=== PATIENT | male | born 1985 | race Caucasian/White ===

== ENCOUNTER 2025-04-11 18:52 | Emergency (ER) | payer OTHER, SELFPAY ==
[2025-04-11 18:53] VITALS: BP 188/108
[2025-04-11 19:44] LABS: ALT (SGPT) 39 U/L (0-50); AST (SGOT) 29 U/L (17-59); Albumin 5.1 g/dl (3.5-5.0); Alkaline Phosphatase 75 U/L (38-126); Blood Urea Nitrogen 9 mg/dl (9-20); Calcium 9.4 mg/dl (8.4-10.2); Carbon Dioxide 30 mmol/L (22-30); Chloride 103 mmol/L (98-107); Glucose 101 mg/dl (70-99); Potassium 4.3 mmol/L (3.5-5.1); Sodium 139 mmol/L (135-145); Total Protein 8.0 g/dl (6.3-8.2); eGFR > 60.00
[2025-04-11 19:45] LABS: Hematocrit 49.5 % (39.0-52.0); Hemoglobin 16.9 g/dL (13.0-18.0); Mean Corp Hgb Conc. 34.1 g/dL (33.0-37.0); Mean Corpuscular Volume 82.0 fL (80.0-94.0); Nucleated Red Blood Cells % 0 % (-); Platelet Count 181 10^3/uL (130-400); Red Cell Dist. Width 12.9 % (11.5-14.5)
--- NOTE | 2025-04-11 19:59 | ED.GENMED ---
History of Present Illness
<Jasmin Hagan MD, Resident - Last Filed: 04/11/25 21:24>
General
Chief Complaint: Change in Mental Status
Source: patient and family
Time Seen by Provider: 04/11/25 19:59
Nursing documentation reviewed up to this point in time: agreed with
History of Present Illness
History of Present Illness:
40-year-old male with past medical history of Asperger's, anxiety, hypothyroidism comes to the ED due to recent weakness, headaches, and more fatigue. He has been more lightheaded and has difficulty getting up for the past week or so. Does not
report any changes in medications but he has had some high blood pressure readings at home, ranging to around 189/103. As per his family, he was told to get a colonoscopy last year was unable to do any prep for it. His family does describe that he
has been snoring a lot and has been getting up in the night. Does not have any chest pain, shortness of breath, difficulty breathing, urinary symptoms. He does not currently have a headache nor any heart palpatations.
Past History
<Jasmin Hagan MD, Resident - Last Filed: 04/11/25 21:24>
Past History
ED Past Medical History: Hypothyroidism, Other (asperger's) and Other (atrial septal defect)
Social History
Tobacco: Non-smoker
Alcohol: None
Drug: None
Personal: Single
Living: with family
Employment: Employed
Family History
Family History: CAD
Review of Systems
<Jasmin Hagan MD, Resident - Last Filed: 04/11/25 21:24>
Review of Systems
Allergies reviewed?: Yes
Unable to obtain full review of systems at this time due to: other (Asperger's)
Other source history: family
Constitutional: Reports fatigue and sleep disturbance; Denies fever or chills
EENT: Reports no symptoms
Respiratory: Reports no symptoms
Cardiac: Reports no symptoms
ABD/GI: Reports no symptoms
: Reports no symptoms
Musculoskeletal: Reports no symptoms
Skin: Reports no symptoms
Neurological: Reports dizzy, headache and weakness
Endocrine: Reports no symptoms
Hematologic/Lymphatic: Reports no symptoms
Psychiatric: Reports no symptoms
Phy Exam
<Jasmin Hagan MD, Resident - Last Filed: 04/11/25 21:24>
General Physical Exam
General Presentation: no apparent distress
General Skin: warm and dry
General Habitus: obese
General Mental: alert and other
General Hydration: appears well hydrated
General Chronic Disability: other (Asperger's)
Cardiovascular Exam
Cardiovascular Exam: regular rate/rhythm and no edema
Pulmonary Exam
Pulmonary Exam: lungs clear, no respiratory distress, no crackles and no wheezing
Gastrointestinal Exam
Gastrointestinal Exam: normal bowel sounds, non tender, soft and distended
Neurological Exam
Neurological Exam: alert and oriented x3
Psychiatric Exam
Psychiatric Exam: normal mood/affect
Course
<Jasmin Hagan MD, Resident - Last Filed: 04/11/25 21:24>
Orders/Labs/Results
Orders:
Orders
04/11/25 19:03
ECG [Electrocardiogram (*1)] Urgent
Reason for Study: Hypertension, Benign
CT Head W/o Iv Contrast Urgent
Comment:
Reason For Exam: CHANGE IN MENTAL STATUS
EKG- Treatment ONCE
04/11/25 19:20
Complete Blood Count/With Diff Urgent
Comprehensive Metabolic Panel Urgent
TSH Urgent
Comment: ADD ON
04/11/25 20:37
Add On- LAB Urgent
Tests Added?: TSH
Amlodipine [Norvasc] 5 mg PO NOW STA
Abnormal Lab Results
04/11/25
19:20
Absolute Lymphs (auto) 0.9 L 10^3/uL
(1.2-3.4)
Neutrophils % 80.5 H %
(42.2-75.2)
Lymphocytes % 11.7 L %
(20.5-51.1)
Glucose 101 H mg/dl
(70-99)
Total Bilirubin 1.4 H mg/dl
(0.2-1.3)
Albumin 5.1 H g/dl
(3.5-5.0)
04/11/25 19:20
04/11/25 19:20
Vital Signs
Initial and Last Documented VS:
Initial Vital Signs
Pulse Resp BP Pulse Ox
65 18 188/108 98
04/11/25 18:53 04/11/25 18:53 04/11/25 18:53 04/11/25 18:53
Last Documented Vital Signs
Pulse Resp BP Pulse Ox
65 18 167/98 95
04/11/25 21:35 04/11/25 21:35 04/11/25 21:35 04/11/25 21:35
<Kevin Brock, DO - Last Filed: 04/11/25 22:57>
Orders/Labs/Results
Orders:
Orders
04/11/25 19:03
ECG [Electrocardiogram (*1)] Urgent
Reason for Study: Hypertension, Benign
CT Head W/o Iv Contrast Urgent
Comment:
Reason For Exam: CHANGE IN MENTAL STATUS
EKG- Treatment ONCE
04/11/25 19:20
Complete Blood Count/With Diff Urgent
Comprehensive Metabolic Panel Urgent
TSH Urgent
Comment: ADD ON
04/11/25 20:37
Add On- LAB Urgent
Tests Added?: TSH
Amlodipine [Norvasc] 5 mg PO NOW STA
Abnormal Lab Results
04/11/25
19:20
Absolute Lymphs (auto) 0.9 L 10^3/uL
(1.2-3.4)
Neutrophils % 80.5 H %
(42.2-75.2)
Lymphocytes % 11.7 L %
(20.5-51.1)
Glucose 101 H mg/dl
(70-99)
Total Bilirubin 1.4 H mg/dl
(0.2-1.3)
Albumin 5.1 H g/dl
(3.5-5.0)
04/11/25 19:20
04/11/25 19:20
Vital Signs
Initial and Last Documented VS:
Initial Vital Signs
Pulse Resp BP Pulse Ox
65 18 188/108 98
04/11/25 18:53 04/11/25 18:53 04/11/25 18:53 04/11/25 18:53
Last Documented Vital Signs
Pulse Resp BP Pulse Ox
65 18 167/98 95
04/11/25 21:35 04/11/25 21:35 04/11/25 21:35 04/11/25 21:35
<Jasmin Hagan MD, Resident - Last Filed: 04/11/25 21:24>
MDM/Problems Addressed
Differential Diagnosis Includes:
Hypertension, Sleep Apnea induced fatigue, intracranial abnormalities, electrolyte imbalance, hypothyroidism, Cardiac Arrhythmia
MDM/Problems Addressed:
EKG did not show any acute abnormalities
CBC/CMP unremarkable for any acute finding
Patient has high blood pressure so will give him a dose of Amlodipine. He should follow up with his PCP for further management of his blood pressure.
Will check TSH
Patient admits to Vertigo, will prescribe him Meclizine to take as needed
Will also provide script for Physical Therapy (Vestibular Therapy)
Chronic conditions affecting care: Neurological disorder (Asperger's)
<Jasmin Hagan MD, Resident - Last Filed: 04/11/25 21:24>
*Pulse Oximetry
SaO2: 98
Oxygen Mode of Delivery: Room air
Patient hypoxic: no
*Critical Care Note
Total Time (30-74mins, 75-104mins- exclusive of procedures): Not Applicable
ED Attending Note
<Jasmin Hagan MD, Resident - Last Filed: 04/11/25 21:24>
-
Portions of this chart may have been created with voice recognition software.� Occasional wrong word or��sound alike� substitutions may have occurred due to the inherent limitations of voice recognition software.
<Kevin Brock, DO - Last Filed: 04/11/25 22:57>
ED Attending Note
Patient seen and examined by attending physician: Yes
I performed a history and physical exam of patient and discussed management with resident, I reviewed resident's note and agree with documented findings and plan of care.: Yes
ED Attending Note:
I have reviewed and agree with history and treatment plan by Jasmin Hagan MD. My exam revealed
Physical Exam
General: no apparent distress, not acutely ill
Neck: supple. no meningeal signs. normal posterior pharynx
Heart: s1/s2 regular rate and rhythm, no murmur. equal radial
pulses.
HEENT: Pupils equal round reactive to light, EOMI
Lungs: no acute respiratory distress. clear bilaterally
Abdomen: normal bowel sounds. not tender. no CVAT
Neuro: alert and oriented. no focal neurological deficits cranial nerves II through XII intact
Skin: no rash
Psychiatric: well kept. interactive and cooperative
Extremities: no edema. no calf tenderness. negative homans. good distal pulses
Patient with likely vertigo and symptomatic hypertension. No neurologic deficit treat with meclizine, physical therapy and amlodipine. Follow with primary care. Do not suspect CVA or intracranial hemorrhage.
Discharge Plan
Departure
Patient Disposition: Home (Routine Discharge)
Date of Disposition: 04/11/25
Time of Disposition: 21:23
Patient with high blood pressure during this ER visit?: Yes
Condition: Good
Discharge Problem:
Hypertension, Vertigo
Instructions: Vertigo - ED discharge instructions, BLOOD PRESSURE
Prescriptions:
New
amlodipine 5 mg tablet
5 mg PO DAILY Qty: 30 0RF
meclizine 25 mg tablet
25 mg PO DAILY PRN (Reason: dizziness) Qty: 10 0RF
No Action
doxycycline monohydrate 100 mg capsule
100 mg PO BID 5 Days Qty: 10 0RF
Referrals:
Makenna Macias, DO [Active, Pulmonary Medicine] - Call in 1-3 days for appt
Referral Note: Follow up with Pulmonology regarding Sleep Study for possible Sleep Apnea
Activity Restrictions/Additional Instructions:
As discussed, you should follow up with Pulmonology regarding sleep study for possible sleep apnea
As discussed you should follow up with your PCP regarding management of hypertension. We have sent 30 day supply of Amlodipine to your pharmacy. Please take it once every day.
If your symptoms worsen and you start having worsening headaches, fevers, chills, or chest pain, please come back to the Emergency department
Please follow up with Physical Therapy for Vestibular Therapy for your vertigo
Please take Meclizine as needed for the dizziness
Interventions
Interventions:
*Risk Screen - Suicide Last Done: 04/11/25 18:53
*Neglect/Abuse Screening Last Done: 04/11/25 18:53
*Nursing Disposition Last Done: 04/11/25 21:35
ED- Pulmonary Assessment Last Done: 04/11/25 20:00
ED- Neurological Assessment Last Done: 04/11/25 20:00
ED- Cardiac Assessment Last Done: 04/11/25 20:00
Discharge Date and Time
Discharge Date/Time: 04/11/25 21:50
Print Language: ITALIAN
[2025-04-11 20:46] VITALS: BP 150/100
[2025-04-11] MEDS: NORVASC 5 MG PO (20:48)
[2025-04-11 21:35] VITALS: BP 167/98
[2025-04-11 21:44] LABS: TSH 1.11 uIU/ml (0.47-4.68)
== END 2025-04-11 21:50 | disposition home or self-care (01) ==
LOC: EMR 18:52
PROVIDERS: EMERGENCY PHYSICIAN Emergency Medicine; FAMILY PHYSICIAN Family Medicine
DX: I10 Essential (primary) hypertension (principal); R42 Dizziness and giddiness; F84.5 Asperger's syndrome; F41.9 Anxiety disorder, unspecified; E03.9 Hypothyroidism, unspecified
CPT/HCPCS: 99284; 70450; 80053; 84443; 85025; 93005